=== PATIENT | male | born 1965 | race Caucasian/White ===

== ENCOUNTER 2020-07-28 08:55 | Inpatient (IN) | payer BC ==
[~2020-07-28] VITALS: Ht 182.9 cm; Wt 87.3 kg
[2020-07-28 09:34] LABS: BASO # 0.1 x10^3/uL (0.0-0.2); BASO % 1 % (0-3); EOS # 0.1 x10^3/uL (0.0-0.7); EOS % 3 % (0-3); HEMATOCRIT 42.9 % (39.0-53.0); HEMOGLOBIN 14.6 g/dL (13.0-17.5); LYMPH # 0.9 x10^3/uL (1.0-4.8); LYMPH % 15 % (24-48); MEAN CORPUSCULAR HEMOGLOBIN 32 pg (25-35); MEAN CORPUSCULAR HGB CONC 34 g/dL (31-37); MEAN CORPUSCULAR VOLUME 95 fL (79-100); MONO # 0.4 x10^3/uL (0.0-1.1); MONO % 6 % (0-9); NEUT # 4.4 x10^3/uL (1.8-7.7); NEUT % 75 % (31-73); PLATELET COUNT 187 x10^3/uL (140-400); RED BLOOD COUNT 4.54 x10^6/uL (4.30-5.70); RED CELL DISTRIBUTION WIDTH 15.5 % (11.5-14.5); WHITE BLOOD COUNT 5.8 x10^3/uL (4.0-11.0)
[2020-07-28 09:42] LABS: CALCIUM 8.8 mg/dL (8.5-10.1); CREATININE 0.9 mg/dL (0.7-1.3); GFR 87.6; POTASSIUM 3.6 mmol/L (3.5-5.1)
[2020-07-28 09:48] LABS: ALBUMIN 3.5 g/dL (3.4-5.0); ALBUMIN/GLOBULIN RATIO 1.3 (1.0-1.7); TOTAL BILIRUBIN 0.4 mg/dL (0.2-1.0); TOTAL PROTEIN 6.3 g/dL (6.4-8.2)
--- NOTE | 2020-07-28 10:52 | RAD ---
EXAM: CT Head without IV contrast INDICATION: Reason: confusion, syncope / Spl. Instructions: / History: TECHNIQUE: Multi-detector row CT images were obtained of the head without the use of IV contrast. All CT scans performed at this facility utilize dose optimization techniques as appropriate to the exam, including the following: Automated exposure control and adjustment of the mA and/or KV according to patient size (this includes techniques or standardized protocols for targeted exams where dose is indication/reason for exam). COMPARISON: None currently available. FINDINGS: BRAIN PARENCHYMA: No evidence of acute intraparenchymal hemorrhage or infarct. No abnormal parenchymal density or mass. Is mild generalized parenchymal volume loss with prominence of the sulci VENTRICLES & EXTRA-AXIAL SPACES: Ventricles are within normal limits. Basilar cisterns are patent. Enlargement of the CSF spaces in the posterior fossa is present, compatible with a megacisterna magna. ORBITS: Orbital contents are unremarkable. SINUSES: Visualized paranasal sinuses and mastoid air cells are clear. OSSEOUS & SOFT TISSUES: Calvarium and skull base are intact. 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 No acute intracranial process otherwise shown on noncontrast head CT. Electronically signed by: Julian Lofton MD (07/28/2020 10:50 AM) [id number]
[2020-07-28 11:30] LABS: BILIRUBIN,URINE NEGATIVE (NEG); COLOR,URINE YELLOW; NITRITE,URINE NEGATIVE (NEG); PH,URINE 6.5 (<5.0-8.0); PROTEIN,URINE 30 mg/dL (NEG-TRACE)
[2020-07-28 11:37] LABS: BARBITURATES NEG (NEG); BENZODIAZEPINES NEG (NEG); CANNABINOIDS NEG (NEG); COCAINE NEG (NEG); METHADONE NEG (NEG); OPIATES NEG (NEG); PHENCYCLIDINE NEG (NEG)
[2020-07-28 11:39] LABS: AMPHETAMINE/METHAMPHETAMINE NEG (NEG)
[2020-07-28 11:57] LABS: CLARITY,URINE CLEAR
[2020-07-28 12:01] LABS: BACTERIA,URINE FEW /HPF (0-FEW)
--- NOTE | 2020-07-28 12:29 | ED.ADGEN ---
Past Medical History Past Medical History: Anxiety, Other Additional Past Medical Histor: SVT,PANIC ATTACKS,NEUROPATHY Past Surgical History: Cholecystectomy, Other Additional Past Surgical Histo: R LEG ORIF Smoking Status: Former Smoker Alcohol Use: Occasionally General Adult EDM: Chief Complaint: SYNCOPE HPI: HPI: Patient is a 54-year-old male who presents to the emergency room after having a syncopal episode at work. Upon initial evaluation patient does not remember wh at happened and does not remember where he was prior to this occurring. He does state he works at [employer] which is where he came from. He does not remember getting out of bed this morning. According to EMS he was working at [employer] and was seen on the camera swaying and then passing out hitting his head. He is having headache and dizziness. Review of Systems: Review of Systems: Complete ROS is negative unless otherwise documented in HPI Allergies: Allergies: Allergies Coded Allergies Type Severity Reaction Last Updated Verified clarithromycin Allergy Unknown UNKNOWN 07/28/20 Yes Physical Exam: PE: General: Awake, alert, NAD. Well Nourished, well hydrated. Cooperative HEENT: Atraumatic, EOMI, PERRL, airway patent, moist oral mucosa Neck: Supple, trachea midline Respiratory: CTA bilaterally, normal effort, no wheezing/crackles CV: RRR, no murmur, cap refill <2 GI: Soft, nondistended, nontender, no masses MSK: No obvious deformities Skin: Warm, dry, intact Neuro: A&O x2, confused, speech NL, sensory and motor grossly intact, no focal deficits Psych: Normal affect, normal mood, not suicidal or homicidal Current Patient Data: Labs: Laboratory Tests Test 07/28/20 09:09 07/28/20 09:15 07/28/20 11:15 Glucose (Fingerstick) 91 mg/dL (70-99) White Blood Count 5.8 x10^3/uL (4.0-11.0) Red Blood Count 4.54 x10^6/uL (4.30-5.70) Hemoglobin 14.6 g/dL (13.0-17.5) Hematocrit 42.9 % (39.0-53.0) Mean Corpuscular Volume 95 fL (79-100) Mean Corpuscular Hemoglobin 32 pg (25-35) Mean Corpuscular Hemoglobin Concent 34 g/dL (31-37) Red Cell Distribution Width 15.5 % (11.5-14.5) H Platelet Count 187 x10^3/uL (140-400) Neutrophils (%) (Auto) 75 % (31-73) H Lymphocytes (%) (Auto) 15 % (24-48) L Monocytes (%) (Auto) 6 % (0-9) Eosinophils (%) (Auto) 3 % (0-3) Basophils (%) (Auto) 1 % (0-3) Neutrophils # (Auto) 4.4 x10^3/uL (1.8-7.7) Lymphocytes # (Auto) 0.9 x10^3/uL (1.0-4.8) L Monocytes # (Auto) 0.4 x10^3/uL (0.0-1.1) Eosinophils # (Auto) 0.1 x10^3/uL (0.0-0.7) Basophils # (Auto) 0.1 x10^3/uL (0.0-0.2) Sodium Level 139 mmol/L (136-145) Potassium Level 3.6 mmol/L (3.5-5.1) Chloride Level 106 mmol/L (98-107) Carbon Dioxide Level 21 mmol/L (21-32) Anion Gap 12 (6-14) Blood Urea Nitrogen 12 mg/dL (8-26) Creatinine 0.9 mg/dL (0.7-1.3) Estimated GFR (Cockcroft-Gault) 87.6 BUN/Creatinine Ratio 13 (6-20) Glucose Level 85 mg/dL (70-99) Calcium Level 8.8 mg/dL (8.5-10.1) Total Bilirubin 0.4 mg/dL (0.2-1.0) Aspartate Amino Transferase (AST) 19 U/L (15-37) Alanine Aminotransferase (ALT) 18 U/L (16-63) Alkaline Phosphatase 89 U/L (46-116) Troponin I Quantitative < 0.017 ng/mL (0.000-0.055) Total Protein 6.3 g/dL (6.4-8.2) L Albumin 3.5 g/dL (3.4-5.0) Albumin/Globulin Ratio 1.3 (1.0-1.7) Ethyl Alcohol Level < 10 mg/dL (0-10) Urine Collection Type Void Urine Color Yellow Urine Clarity Clear Urine pH 6.5 (<5.0-8.0) Urine Specific [place] 1.020 (1.000-1.030) Urine Protein 30 mg/dL (NEG-TRACE) Urine Glucose (UA) Negative mg/dL (NEG) Urine Ketones (Stick) Negative mg/dL (NEG) Urine Blood Negative (NEG) Urine Nitrite Negative (NEG) Urine Bilirubin Negative (NEG) Urine Urobilinogen Dipstick 1.0 mg/dL (0.2 mg/dL) Urine Leukocyte Esterase Negative (NEG) Urine RBC 1-2 /HPF (0-2) Urine WBC 5-10 /HPF (0-4) Urine Squamous Epithelial Cells Occ /LPF Urine Bacteria Few /HPF (0-FEW) Urine Mucus Mod /LPF Urine Opiates Screen Neg (NEG) Urine Methadone Screen Neg (NEG) Urine Barbiturates Neg (NEG) Urine Phencyclidine Screen Neg (NEG) Urine Amphetamine/Methamphetamine Neg (NEG) Urine Benzodiazepines Screen Neg (NEG) Urine Cocaine Screen Neg (NEG) Urine Cannabinoids Screen Neg (NEG) Urine Ethyl Alcohol Neg (NEG) Laboratory Tests 07/28/20 09:15 Laboratory Tests 07/28/20 09:15 Vital Signs: Vital Signs Date Time Temp Pulse Resp B/P (MAP) Pulse Ox O2 Delivery O2 Flow Rate FiO2 07/28/20 10:02 68 11 127/81 (96) 93 Room Air 07/28/20 08:55 98.6 98.6 EKG: EKG: [] Heart Score: Risk Factors: Risk Factors: DM, Current or recent (<one month) smoker, HTN, HLP, family history of CAD, obesity. Risk Scores: Score 0 - 3: 2.5% MACE over next 6 weeks - Discharge Home Score 4 - 6: 20.3% MACE over next 6 weeks - Admit for Clinical Observation Score 7 - 10: 72.7% MACE over next 6 weeks - Early Invasive Strategies Radiology/Procedures: Radiology/Procedures: [] Course & Med Decision Making: Course & Med Decision Making Pertinent Labs and Imaging studies reviewed. (See chart for details) Patient is a 54-year-old male who presents to the emergency room complaining of syncope. Upon arrival patient is confused and does not remember the morning. EKG does not show recurrent arrhythmia though patient is currently asymptomatic. CT head was done which does not show an intracranial bleed. Given patient's symptoms and initial presentation I am concerned and recommend admission at this time. Patient did improve while in the emergency room. He will be admitted to the hospitalist who is accepted admission. Pedro Disclaimer: Pedro Disclaimer: This electronic medical record was generated, in whole or in part, using a voice recognition dictation system. Departure Departure Impression: Primary Impression: Syncope Additional Impression: Closed head injury Disposition: 09 ADMITTED INPT THIS HOSP Condition: STABLE Referrals: NO PCP (PCP) Problem Qualifiers ANALILIA VALDERRAMA MD Jul 28, 2020 12:29
[2020-07-28] MEDS ORDERED: guaiFENesin ORAL 200 MG/10 ML LIQUID. PO PRN (12:30)
[2020-07-28] MEDS ORDERED: ALBUTEROL SULFATE 2.5 MG/3 ML NEBU. NEB PRN (12:30)
[2020-07-28] MEDS ORDERED: DOCUSATE SODIUM 100 MG CAPSULE. PO PRN (12:30)
[2020-07-28] MEDS ORDERED: ONDANSETRON PF 4 MG/2 ML VIAL. IV PRN (12:30)
[2020-07-28] MEDS ORDERED: IV NORMAL SALINE 1000ML BAG 1,000 ML IV SCH (12:30)
[2020-07-28] MEDS ORDERED: diphenhydrAMINE 50 MG/ML VIAL IVP PRN (12:30)
[2020-07-28] MEDS ORDERED: LORazepam 0.5 MG TABLET PO ONE (12:30)
[2020-07-28] MEDS: ENOXAPARIN 40 MG/0.4 ML SYRINGE. SQ SCH (12:46)
[2020-07-28] MEDS ORDERED: METHOCARBAMOL 750 MG TABLET PEG PRN (14:00)
--- NOTE | 2020-07-28 14:00 | NUR ---
Patient arrived to room 208 via bed from ER at around 1400. Patient A&OX4. VSS. Complains of headache & neck pain. Neck pain is chronic. Patient states he is recently & is currently living at [facility] half-way & working at [employer] trying to save up money for an apartment. The patient, RADHA BIGGS, 54 y/o, M admitted by NAHOMY JONES MD, was given written information regarding hospital policies, unit procedures and contact persons. Valuables were checked and noted. Will continue to monitor.
[2020-07-28 14:12] VITALS: BP 139/94
--- NOTE | 2020-07-28 14:15 | PDOC1 ---
History and Physical Date of Admission Date of Admission 07/28/2020 Identification/Chief Complaint Chief Complaint Lost consciousness Source Source: Chart review, Patient History of Present Illness History of Present Illness Patient is a 54-year-old gentleman with no significant past medical history except for SVT who he has been diagnosed for a long time ever since his teenage years. The patient has had several echocardiograms in the past and has been told that he has like an incomplete mitral valve prolapse. 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 He had breakfast this morning at his workplace and drank coffee no recent changes to his diet in no recent changes to his activity level either. The patient denies any herbal supplements nor nutritional supplements that have been started recently either. He was standing when he started feeling lightheaded and having the sensation of the room spinning, the patient denies any pulsatory auditory or visual aura type of symptoms, he does not remember falling to the ground he woke up when his coworkers were trying to wake him up from his stupor. The patient as per report from emergency department physician and EMS apparently had a brief period of "confusion". The patient did not present seizure-like activity there was no loss of sphincters and there is no tongue trauma either. The patient was brought to the emergency department where his work-up has been unrevealing at the present time, reassurance has been provided to the patient we have been asked to admit the patient for further evaluation and treatment. The patient denies any headache no blurred vision no recent infections no fever or chills no neck stiffness no trouble swallowing no neurological deficits have been reported. The patient denies any chest pain palpitations no shortness of breath no abdominal pain nausea vomiting or diarrhea has been reported. Patient denies any peripheral swelling. Plan of care has been explained detail and all of his concerns were addressed to the best of my abilities Past Medical History Past Medical History Mitral valve prolapse SVT Past Surgical History Past Surgical History: No pertinent history Family History Family History: No Significant Social History Smoke: No ALCOHOL: none Drugs: None Current Problem List Problem List Problems Medical Problems: (1) Closed head injury Status: Acute (2) Syncope Status: Acute Current Medications Current Medications Current Medications Medications (Trade) Dose Ordered Sig/Gail Start Time Stop Time Status Last Admin Dose Admin Acetaminophen (Tylenol) 650 mg PRN Q4HRS PRN 07/28/20 12:30 Albuterol Sulfate (Ventolin Neb Soln) 2.5 mg PRN Q4HRS PRN 07/28/20 12:30 Diphenhydramine HCl (Benadryl) 25 mg PRN Q4HRS PRN 07/28/20 12:30 Docusate Sodium (Colace) 100 mg PRN BID PRN 07/28/20 12:30 Enoxaparin Sodium (Lovenox 40mg Syringe) 40 mg Q24H 07/28/20 13:00 07/28/20 12:46 40 MG Guaifenesin (Robitussin) 200 mg PRN Q4HRS PRN 07/28/20 12:30 Lorazepam (Ativan) 0.5 mg 1X ONCE 07/28/20 12:30 07/28/20 12:34 DC 07/28/20 12:46 0.5 MG Meloxicam (Mobic) 7.5 mg BID PRN 07/28/20 14:00 Methocarbamol (Robaxin) 1,500 mg Q8H PRN 07/28/20 14:00 Ondansetron HCl (Zofran) 4 mg PRN Q4HRS PRN 07/28/20 12:30 Sodium Chloride 1,000 ml @ 100 mls/hr Q10H 07/28/20 12:30 07/28/20 22:29 07/28/20 12:46 100 MLS/HR Zolpidem Tartrate (Ambien) 5 mg PRN QHS PRN 07/28/20 12:30 Allergies Allergies Allergies Coded Allergies Type Severity Reaction Last Updated Verified clarithromycin Allergy Unknown UNKNOWN 07/28/20 Yes ROS Review of System CONSTITUTIONAL: No fever or chills EYES: No recent changes SKIN: No rash or itching CARDIOVASCULAR: No chest pain, syncope, palpitations, or edema RESPIRATORY: No SOB or cough GASTROINTESTINAL: No nausea, vomiting or abdominal pain NEUROLOGICAL: No headaches or weakness ENDOCRINE: No cold or heat intolerance GENITOURINARY: No urgency or frequency of urination MUSCULOSKELETAL: No back pain or joint pain LYMPHATICS: No enlarged lymph nodes PSYCHIATRIC: No anxiety or depression Physical Exam Physical Exam GEN.: No apparent distress. Alert and oriented. HEENT: Head is normocephalic, atraumatic NECK: Supple. LUNGS: Clear to auscultation. HEART: RRR, S1, S2 present. Peripheral pulses intact ABDOMEN: Soft, nontender. Positive bowel sounds. EXTREMITIES: Without any cyanosis. NEUROLOGIC: Normal speech, normal tone PSYCHIATRIC: Normal affect, normal mood. SKIN: No ulcerations Vitals Vitals Vital Signs Date Time Temp Pulse Resp B/P (MAP) Pulse Ox O2 Delivery O2 Flow Rate FiO2 07/28/20 13:42 86 20 140/83 (102) 98 Room Air 07/28/20 08:55 98.6 98.6 Labs Labs Laboratory Tests Test 07/28/20 09:09 07/28/20 09:15 07/28/20 11:15 Glucose (Fingerstick) 91 mg/dL (70-99) White Blood Count 5.8 x10^3/uL (4.0-11.0) Red Blood Count 4.54 x10^6/uL (4.30-5.70) Hemoglobin 14.6 g/dL (13.0-17.5) Hematocrit 42.9 % (39.0-53.0) Mean Corpuscular Volume 95 fL (79-100) Mean Corpuscular Hemoglobin 32 pg (25-35) Mean Corpuscular Hemoglobin Concent 34 g/dL (31-37) Red Cell Distribution Width 15.5 % (11.5-14.5) Platelet Count 187 x10^3/uL (140-400) Neutrophils (%) (Auto) 75 % (31-73) Lymphocytes (%) (Auto) 15 % (24-48) Monocytes (%) (Auto) 6 % (0-9) Eosinophils (%) (Auto) 3 % (0-3) Basophils (%) (Auto) 1 % (0-3) Neutrophils # (Auto) 4.4 x10^3/uL (1.8-7.7) Lymphocytes # (Auto) 0.9 x10^3/uL (1.0-4.8) Monocytes # (Auto) 0.4 x10^3/uL (0.0-1.1) Eosinophils # (Auto) 0.1 x10^3/uL (0.0-0.7) Basophils # (Auto) 0.1 x10^3/uL (0.0-0.2) Sodium Level 139 mmol/L (136-145) Potassium Level 3.6 mmol/L (3.5-5.1) Chloride Level 106 mmol/L (98-107) Carbon Dioxide Level 21 mmol/L (21-32) Anion Gap 12 (6-14) Blood Urea Nitrogen 12 mg/dL (8-26) Creatinine 0.9 mg/dL (0.7-1.3) Estimated GFR (Cockcroft-Gault) 87.6 BUN/Creatinine Ratio 13 (6-20) Glucose Level 85 mg/dL (70-99) Calcium Level 8.8 mg/dL (8.5-10.1) Total Bilirubin 0.4 mg/dL (0.2-1.0) Aspartate Amino Transf (AST/SGOT) 19 U/L (15-37) Alanine Aminotransferase (ALT/SGPT) 18 U/L (16-63) Alkaline Phosphatase 89 U/L (46-116) Troponin I Quantitative < 0.017 ng/mL (0.000-0.055) Total Protein 6.3 g/dL (6.4-8.2) Albumin 3.5 g/dL (3.4-5.0) Albumin/Globulin Ratio 1.3 (1.0-1.7) Ethyl Alcohol Level < 10 mg/dL (0-10) Urine Collection Type Void Urine Color Yellow Urine Clarity Clear Urine pH 6.5 (<5.0-8.0) Urine Specific [place] 1.020 (1.000-1.030) Urine Protein 30 mg/dL (NEG-TRACE) Urine Glucose (UA) Negative mg/dL (NEG) Urine Ketones (Stick) Negative mg/dL (NEG) Urine Blood Negative (NEG) Urine Nitrite Negative (NEG) Urine Bilirubin Negative (NEG) Urine Urobilinogen Dipstick 1.0 mg/dL (0.2 mg/dL) Urine Leukocyte Esterase Negative (NEG) Urine RBC 1-2 /HPF (0-2) Urine WBC 5-10 /HPF (0-4) Urine Squamous Epithelial Cells Occ /LPF Urine Bacteria Few /HPF (0-FEW) Urine Mucus Mod /LPF Urine Opiates Screen Neg (NEG) Urine Methadone Screen Neg (NEG) Urine Barbiturates Neg (NEG) Urine Phencyclidine Screen Neg (NEG) Urine Amphetamine/Methamphetamine Neg (NEG) Urine Benzodiazepines Screen Neg (NEG) Urine Cocaine Screen Neg (NEG) Urine Cannabinoids Screen Neg (NEG) Urine Ethyl Alcohol Neg (NEG) Laboratory Tests Test 07/28/20 09:09 07/28/20 09:15 07/28/20 11:15 Glucose (Fingerstick) 91 mg/dL (70-99) White Blood Count 5.8 x10^3/uL (4.0-11.0) Red Blood Count 4.54 x10^6/uL (4.30-5.70) Hemoglobin 14.6 g/dL (13.0-17.5) Hematocrit 42.9 % (39.0-53.0) Mean Corpuscular Volume 95 fL (79-100) Mean Corpuscular Hemoglobin 32 pg (25-35) Mean Corpuscular Hemoglobin Concent 34 g/dL (31-37) Red Cell Distribution Width 15.5 % (11.5-14.5) Platelet Count 187 x10^3/uL (140-400) Neutrophils (%) (Auto) 75 % (31-73) Lymphocytes (%) (Auto) 15 % (24-48) Monocytes (%) (Auto) 6 % (0-9) Eosinophils (%) (Auto) 3 % (0-3) Basophils (%) (Auto) 1 % (0-3) Neutrophils # (Auto) 4.4 x10^3/uL (1.8-7.7) Lymphocytes # (Auto) 0.9 x10^3/uL (1.0-4.8) Monocytes # (Auto) 0.4 x10^3/uL (0.0-1.1) Eosinophils # (Auto) 0.1 x10^3/uL (0.0-0.7) Basophils # (Auto) 0.1 x10^3/uL (0.0-0.2) Sodium Level 139 mmol/L (136-145) Potassium Level 3.6 mmol/L (3.5-5.1) Chloride Level 106 mmol/L (98-107) Carbon Dioxide Level 21 mmol/L (21-32) Anion Gap 12 (6-14) Blood Urea Nitrogen 12 mg/dL (8-26) Creatinine 0.9 mg/dL (0.7-1.3) Estimated GFR (Cockcroft-Gault) 87.6 BUN/Creatinine Ratio 13 (6-20) Glucose Level 85 mg/dL (70-99) Calcium Level 8.8 mg/dL (8.5-10.1) Total Bilirubin 0.4 mg/dL (0.2-1.0) Aspartate Amino Transf (AST/SGOT) 19 U/L (15-37) Alanine Aminotransferase (ALT/SGPT) 18 U/L (16-63) Alkaline Phosphatase 89 U/L (46-116) Troponin I Quantitative < 0.017 ng/mL (0.000-0.055) Total Protein 6.3 g/dL (6.4-8.2) Albumin 3.5 g/dL (3.4-5.0) Albumin/Globulin Ratio 1.3 (1.0-1.7) Ethyl Alcohol Level < 10 mg/dL (0-10) Urine Collection Type Void Urine Color Yellow Urine Clarity Clear Urine pH 6.5 (<5.0-8.0) Urine Specific [place] 1.020 (1.000-1.030) Urine Protein 30 mg/dL (NEG-TRACE) Urine Glucose (UA) Negative mg/dL (NEG) Urine Ketones (Stick) Negative mg/dL (NEG) Urine Blood Negative (NEG) Urine Nitrite Negative (NEG) Urine Bilirubin Negative (NEG) Urine Urobilinogen Dipstick 1.0 mg/dL (0.2 mg/dL) Urine Leukocyte Esterase Negative (NEG) Urine RBC 1-2 /HPF (0-2) Urine WBC 5-10 /HPF (0-4) Urine Squamous Epithelial Cells Occ /LPF Urine Bacteria Few /HPF (0-FEW) Urine Mucus Mod /LPF Urine Opiates Screen Neg (NEG) Urine Methadone Screen Neg (NEG) Urine Barbiturates Neg (NEG) Urine Phencyclidine Screen Neg (NEG) Urine Amphetamine/Methamphetamine Neg (NEG) Urine Benzodiazepines Screen Neg (NEG) Urine Cocaine Screen Neg (NEG) Urine Cannabinoids Screen Neg (NEG) Urine Ethyl Alcohol Neg (NEG) VTE Prophylaxis Ordered VTE Prophylaxis Devices: No VTE Pharmacological Prophylaxi: Yes Assessment/Plan Assessment/Plan Syncope differential is quite broad and includes cardiac etiology unlikely central etiology given his benign neurological examination no electrolyte disturbance that could explain it either. 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 otherwise no acute intracranial process History of SVT History of mitral valve prolapse Muscle spasms Plan Admit patient to the telemetry floor We will monitor troponins every 6 hours x2 We will order an echocardiogram We will order carotid ultrasounds Reassess neurological status in the a.m. Resume home medications if available for review DVT prophylaxis with Lovenox Further recommendations will be based on the clinical course, if negative work- up and orthostatic hypotension is not present most likely patient will be discharged in the a.m. Justifications for Admission Syncope Indications Altered Mental Status?: Yes Other Justification NAHOMY JONES MD Jul 28, 2020 14:15
[2020-07-28] MEDS ORDERED: LORA-434 PO (15:01)
[2020-07-28] MEDS ORDERED: CLONAZEPAM1 MG PO (15:01)
[2020-07-28] MEDS ORDERED: BUSP10TA PO (15:01)
[2020-07-28] MEDS ORDERED: OMEP20CA16 PO (15:01)
[2020-07-28] MEDS ORDERED: ATEN50TA PO (15:01)
[2020-07-28] MEDS: ACETAMINOPHEN 325 MG TABLET. PO PRN ×2 (15:05→22:48)
[2020-07-28] MEDS ORDERED: NORT10CA PO (16:19)
[2020-07-28] MEDS ORDERED: OMEP20TA8 PO (16:19)
[2020-07-28] MEDS ORDERED: CHOL500021 PO (16:21)
--- NOTE | 2020-07-28 16:21 | RAD ---
PQRS Compliance Statement - Stenosis calculations for CT, MR and conventional angiography are based upon measurement of the distal ICA diameter in accordance with the NASCET methodology. Stenosis calculations for carotid ultrasound studies are derived from validated velocity criteria which are known to correlate with the NASCET methodology. Duplex ultrasound carotid arteries. HISTORY: Syncope Real-time imaging, color-flow imaging and Doppler were utilized to evaluate the carotid arteries. There is mild plaque without stenosis at the right carotid bifurcation. Peak velocity in the right internal carotid artery was 53 cm/s with a systolic velocity ratio of 0.54. End diastolic velocity was 19 cm/s. There is antegrade flow in the right vertebral. There is minimal plaque at the carotid bifurcation and internal carotid artery on the right side. Peak velocity in the right internal carotid artery was 64 cm/s with an end-diastolic velocity of 12 cm/s and a systolic velocity ratio of the 0.52. There is antegrade flow in the left vertebral. IMPRESSION: 1. Minimal plaque the carotid bifurcations without significant stenosis. Electronically signed by: Van Serna MD (07/28/2020 4:18 PM) [facility]
[2020-07-28 16:40] VITALS: BP 135/83
[2020-07-28 16:45] VITALS: BP 158/95
[2020-07-28 16:50] VITALS: BP 154/96
[2020-07-28] MEDS: LORazepam 0.5 MG TABLET PO PRN ×2 (17:15→21:10)
[2020-07-28] MEDS ORDERED: FLU VACC QS 2020-21(6MOS+)/PF 0.5 ML SYRINGE. VAX IM ONE (18:00)
[2020-07-28] MEDS ORDERED: PANTOPRAZOLE 40 MG TABLET.DR. PO PRN (18:45)
[2020-07-28 19:50] VITALS: BP 151/70
[2020-07-28] MEDS: clonazePAM 0.5 MG TABLET PO SCH (21:00)
[2020-07-28] MEDS: busPIRone 10 MG TABLET. PO SCH (21:10)
[2020-07-28] MEDS: ATENOLOL 50 MG TABLET. PO SCH (21:11)
[2020-07-28 22:35] VITALS: BP 145/84
[2020-07-28] MEDS: ZOLPIDEM 5 MG TABLET. PO PRN (22:48)
[2020-07-29 03:00] VITALS: BP 138/78
[2020-07-29 07:00] VITALS: BP 139/80
[2020-07-29] MEDS: clonazePAM 0.5 MG TABLET PO SCH ×2 (08:48→20:44)
[2020-07-29] MEDS: CHOLECALCIFEROL (VITAMIN D3) 1,000 UNIT TABLET PO SCH (08:48)
[2020-07-29] MEDS: busPIRone 10 MG TABLET. PO SCH ×2 (08:49→20:43)
[2020-07-29] MEDS: MELOXICAM 7.5 MG TABLET PO PRN (08:51)
[2020-07-29] MEDS: NICOTINE 14MG PATCH. TD PRN (08:51)
[2020-07-29] MEDS: LORazepam 0.5 MG TABLET PO PRN ×3 (09:25→19:44)
[2020-07-29 11:14] VITALS: BP 125/76
[2020-07-29] MEDS: ENOXAPARIN 40 MG/0.4 ML SYRINGE. SQ SCH (13:00)
--- NOTE | 2020-07-29 13:18 | CARD ---
MR#: [id number] Date of Study: 07/29/2020 Ordering Physician: NAHOMY JONES, Referring Physician: NAHOMY JONES, Tech: Elo Sarah APPROVED REPORT EXAM: Two-dimensional and M-mode echocardiogram with Doppler and color Doppler. Other Information Quality : AverageHR: 67bpm INDICATION Syncope 2D DIMENSIONS Left Atrium(2D)4.0 (1.6-4.0cm)IVSd1.2 (0.7-1.1cm) Aortic Root(2D)3.5 (2.0-3.7cm)LVDd5.6 (3.9-5.9cm) LVOT Diameter2.2 (1.8-2.4cm)PWd1.2 (0.7-1.1cm) LVDs3.5 (2.5-4.0cm)FS (%) 37.6 % SV101.5 mlLVEF(%)67.0 (>50%) Aortic Valve AoV Peak Charan.100.8cm/sAoV VTI20.6cm AO Peak GR.4.1mmHgLVOT VTI 15.84cm AO Mean GR.2mmHg Mitral Valve MV E Saxxscjm22.0cm/sMV DECEL [id number] MV A Npqakppm88.3cm/sE/A Ratio1.5 TDI Lateral E' P. V9.78cm/sMedial E' P. V9.78cm/s E/Lateral E'7.6E/Medial E'7.6 Tricuspid Valve TR P. Trdmtacv305ph/sRAP WSZOVVCQ1zoXj TR Peak Gr.75jgTkTWYX80haOy Pulmonary Vein S1 Ejbnilzy28.5cm/sS2 Zoypdgwg53.49cm/s D2 Gbmvgqfc09.5cm/s LEFT VENTRICLE The left ventricle is normal size. There is mild concentric left ventricular hypertrophy. The left ve ntricular systolic function is normal and the ejection fraction is within normal range. The Ejection Fraction is 55%. There is normal LV segmental wall motion. Transmitral Doppler flow pattern is Grade II-pseudonormal filling dynamics. RIGHT VENTRICLE The right ventricle is normal size. There is normal right ventricular wall thickness. The right ventr icular systolic function is normal. ATRIA The left atrium size is normal. The right atrium size is normal. The interatrial septum is intact wit h no evidence for an atrial septal defect or patent foramen ovale as noted on 2-D or Doppler imaging. AORTIC VALVE The aortic valve is thickened but opens well. Doppler and Color Flow revealed no significant aortic r egurgitation. There is no significant aortic valvular stenosis. MITRAL VALVE The mitral valve is normal in structure and function. There is no evidence of mitral valve prolapse. There is no mitral valve stenosis. Doppler and Color Flow revealed no mitral valve regurgitation note d. TRICUSPID VALVE The tricuspid valve is normal in structure and function. Doppler and Color Flow revealed trace tricus pid regurgitation with an estimated PAP of 29 mmHg. There is no tricuspid valve stenosis. PULMONIC VALVE The pulmonic valve is not well visualized. Doppler and Color Flow revealed trace to mild pulmonic inocencio vular regurgitation. There is no pulmonic valvular stenosis. GREAT VESSELS The aortic root is normal in size. The IVC was not well visualized. PERICARDIAL EFFUSION There is no evidence of significant pericardial effusion. Critical Notification Critical Value: No <Conclusion> The left ventricular systolic function is normal and the ejection fraction is within normal range. Th e Ejection Fraction is 55%. There is normal LV segmental wall motion. Signed by : Giovanni Mondragon, Electronically Approved : 07/29/2020 13:18:21
[2020-07-29] MEDS: DICLOFENAC SODIUM 1% TOPICAL GEL 100GM TUBE. TP SCH ×2 (13:45→20:50)
[2020-07-29] MEDS: CYCLOBENZAPRINE 10 MG TABLET. PO PRN (13:45)
[2020-07-29 15:00] VITALS: BP 141/87
[2020-07-29 19:43] VITALS: BP 146/94
[2020-07-29] MEDS: ZOLPIDEM 5 MG TABLET. PO PRN (20:43)
[2020-07-29] MEDS: ATENOLOL 50 MG TABLET. PO SCH (20:43)
[2020-07-29 22:36] VITALS: BP 126/81
[2020-07-30 02:49] VITALS: BP 143/85
[2020-07-30] MEDS: MELOXICAM 7.5 MG TABLET PO PRN (04:44)
[2020-07-30] MEDS: LORazepam 0.5 MG TABLET PO PRN (04:47)
--- NOTE | 2020-07-30 06:13 | NUR ---
patient accidently pulled out IV. Obtained order to leave out IV per Dr. Moreno. WIll continue to monitor.
[2020-07-30 07:00] VITALS: BP 144/81
[2020-07-30] MEDS: CYCLOBENZAPRINE 10 MG TABLET. PO PRN (07:42)
[2020-07-30] MEDS: ACETAMINOPHEN 325 MG TABLET. PO PRN (07:45)
[2020-07-30] MEDS: busPIRone 10 MG TABLET. PO SCH (08:31)
[2020-07-30] MEDS: CHOLECALCIFEROL (VITAMIN D3) 1,000 UNIT TABLET PO SCH (08:31)
[2020-07-30] MEDS: clonazePAM 0.5 MG TABLET PO SCH (08:31)
[2020-07-30] MEDS: NICOTINE 14MG PATCH. TD PRN (08:32)
[2020-07-30] MEDS: DICLOFENAC SODIUM 1% TOPICAL GEL 100GM TUBE. TP SCH (08:32)
[2020-07-30] MEDS ORDERED: CYCL10TA2 PO (09:45)
[2020-07-30] MEDS ORDERED: MELO7.5T29 PO (09:45)
[2020-07-30 11:00] VITALS: BP 130/83
--- NOTE | 2020-07-30 11:07 | PDOC3 ---
Discharge Summary Visit Information Date of Admission: Jul 28, 2020 Date of Discharge: Jul 30, 2020 Admitting Diagnosis Comment: Syncope differential is quite broad and includes cardiac etiology unlikely central etiology given his benign neurological examination no electrolyte disturbance that could explain it either. 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 otherwise no acute intracranial process History of SVT History of mitral valve prolapse with no clinical significance Muscle spasms Brief Hospital Course Allergies Allergies Coded Allergies Type Severity Reaction Last Updated Verified clarithromycin Allergy Intermediate UNKNOWN 07/29/20 Yes Vital Signs Vital Signs Date Time Temp Pulse Resp B/P (MAP) Pulse Ox O2 Delivery O2 Flow Rate FiO2 07/30/20 07:30 Room Air 07/30/20 07:00 98.8 66 20 144/81 (102) 98 98.8 Lab Results Laboratory Tests Test 07/28/20 11:15 07/28/20 14:20 07/28/20 20:45 07/29/20 19:55 Urine Collection Type Void Urine Color Yellow Urine Clarity Clear Urine pH 6.5 (<5.0-8.0) Urine Specific [place] 1.020 (1.000-1.030) Urine Protein 30 mg/dL (NEG-TRACE) Urine Glucose (UA) Negative mg/dL (NEG) Urine Ketones (Stick) Negative mg/dL (NEG) Urine Blood Negative (NEG) Urine Nitrite Negative (NEG) Urine Bilirubin Negative (NEG) Urine Urobilinogen Dipstick 1.0 mg/dL (0.2 mg/dL) Urine Leukocyte Esterase Negative (NEG) Urine RBC 1-2 /HPF (0-2) Urine WBC 5-10 /HPF (0-4) Urine Squamous Epithelial Cells Occ /LPF Urine Bacteria Few /HPF (0-FEW) Urine Mucus Mod /LPF Urine Opiates Screen Neg (NEG) Urine Methadone Screen Neg (NEG) Urine Barbiturates Neg (NEG) Urine Phencyclidine Screen Neg (NEG) Urine Amphetamine/Methamphetamine Neg (NEG) Urine Benzodiazepines Screen Neg (NEG) Urine Cocaine Screen Neg (NEG) Urine Cannabinoids Screen Neg (NEG) Urine Ethyl Alcohol Neg (NEG) Troponin I Quantitative < 0.017 ng/mL (0.000-0.055) < 0.017 ng/mL (0.000-0.055) SARS-CoV-2 Antigen (Rapid) Negative (NEGATIVE) Laboratory Tests Test 07/29/20 19:55 SARS-CoV-2 Antigen (Rapid) Negative (NEGATIVE) Brief Hospital Course History of Present Illness Patient is a 54-year-old gentleman with no significant past medical history except for SVT who he has been diagnosed for a long time ever since his teenage years. The patient has had several echocardiograms in the past and has been told that he has like an incomplete mitral valve prolapse. 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 He had breakfast this morning at his workplace and drank coffee no recent changes to his diet in no recent changes to his activity level either. The patient denies any herbal supplements nor nutritional supplements that have been started recently either. He was standing when he started feeling lightheaded and having the sensation of the room spinning, the patient denies any pulsatory auditory or visual aura type of symptoms, he does not remember falling to the ground he woke up when his coworkers were trying to wake him up from his stupor. The patient as per report from emergency department physician and EMS apparently had a brief period of "confusion". The patient did not present seizure-like activity there was no loss of sphincters and there is no tongue trauma either. The patient was brought to the emergency department where his work-up has been unrevealing at the present time, reassurance has been provided to the patient we have been asked to admit the patient for further evaluation and treatment. The patient denies any headache no blurred vision no recent infections no fever or chills no neck stiffness no trouble swallowing no neurological deficits have been reported. The patient denies any chest pain palpitations no shortness of breath no abdominal pain nausea vomiting or diarrhea has been reported. Patient denies any peripheral swelling. Plan of care has been explained detail and all of his concerns were addressed to the best of my abilities 07/29/2020 Patient with no acute events reported overnight, the patient had a very uneventful evening no telemetry changes of concern. The patient was complaining of severe back pain due to the fall most likely. Fortunately enough he did not present any fractures and there is no evidence of bleeding bruising etc. Plan of care has been explained detail 07/30/2020 Patient had a benign hospital course and also a negative work-up with carotid ultrasounds normal with no flow-limiting lesions, echocardiogram also with normal ejection fraction no evidence of mitral valve prolapse or valvulopathy that could explain his symptoms. He was deemed appropriate for discharge and given his social problems we will be discharged patient later in the day [facility] so [facility]. All of his concerns were addressed to the best of my abilities and we will arrange for a follow-up appointment with Dr. Irlanda sierra moving forward so he can have a cardiac monitoring to rule out arrhythmias that are not frequent in nature. This was discussed at length with the patient as well Gen.: well-developed well-nourished in no apparent distress Head: Normal shape atraumatic Eyes: Pupils equal reactive to light and accommodation, normal conjunctivae and lids Ears: Normal shape Nose: Normal shape no trauma Mouth: No exudates of the back of throat no thrush no lesions Neck: Supple no JVD no carotid bruit or lymphadenopathy no thyromegaly Chest: Lungs clear to auscultation with good inspiratory effort no crackles rales or rhonchi Cardiovascular: S1-S2 regular rhythm no murmurs gallops or rubs Abdomen: Bowel sounds present soft nontender no hepatosplenomegaly appreciated sign Extremities: No clubbing no cyanosis no edema peripheral pulses palpated bilaterally Neurological: Alert awake oriented in person time place and situation, cranial nerves II through XII intact, no motor or sensory deficits appreciated Psych: Appropriate mood, cooperative Assessment Assessment [address] [place], [place] [id number] IMAGING REPORT Signed PATIENT: RADHA BIGGS ACCOUNT: [id number] : 1965 LOCATION: [facility] AGE: 54 SEX: M EXAM STATUS: ADM IN ORD. PHYSICIAN: NAHOMY JONES MD REASON: syncope PROCEDURE: DOPPLER CAROTID BILAT PQRS Compliance Statement - Stenosis calculations for CT, MR and conventional angiography are based upon measurement of the distal ICA diameter in accordance with the NASCET methodology. Stenosis calculations for carotid ultrasound studies are derived from validated velocity criteria which are known to correlate with the NASCET methodology. Duplex ultrasound carotid arteries. HISTORY: Syncope Real-time imaging, color-flow imaging and Doppler were utilized to evaluate the carotid arteries. There is mild plaque without stenosis at the right carotid bifurcation. Peak velocity in the right internal carotid artery was 53 cm/s with a systolic velocity ratio of 0.54. End diastolic velocity was 19 cm/s. There is antegrade flow in the right vertebral. There is minimal plaque at the carotid bifurcation and internal carotid artery on the right side. Peak velocity in the right internal carotid artery was 64 cm/s with an end-diastolic velocity of 12 cm/s and a systolic velocity ratio of the 0.52. There is antegrade flow in the left vertebral. IMPRESSION: 1. Minimal plaque the carotid bifurcations without significant stenosis. Discharge Information Condition at Discharge: Improved Follow Up: Weeks Disposition/Orders: D/C to Home Scheduled Atenolol (Atenolol) 50 Mg Tablet, 1 TAB PO HS for SVT, #30 Ref 5 (Reported) Entered as Reported by: JULIANNE DE LA PAZ on 07/28/201500 Last Action: Continued on 07/28/201841 by JULIANNE DE LA PAZ Buspirone Hcl (Buspirone Hcl) 10 Mg Tablet, 2 TAB PO BID for anxiety, #60 Ref 1 (Reported) Entered as Reported by: JULIANNE DE LA PAZ on 07/28/20 150 Last Action: Continued on 07/28/201841 by JULIANNE DE LA PAZ Cholecalciferol (Vitamin D3) (D3-50) 50,000 Unit Capsule, 1,000 CAP PO DAILY for supplement for 28 Days, #4 Ref 0 (Reported) Entered as Reported by: JULIANNE DE LA PAZ on 07/28/20 162 Last Action: Converted on 07/28/201841 by JULIANNE DE LA PAZ Clonazepam (Clonazepam) 1 Mg Tablet, 1 MG PO BID for FOR ANXIETY, (Reported) Entered as Reported by: JULIANNE DE LA PAZ on 07/28/20 150 Last Action: Converted on 07/28/201841 by JULIANNE DE LA PAZ Nortriptyline Hcl (Nortriptyline Hcl) 10 Mg Capsule, Unknown Dose PO QHS for nerve pain, #30 (Reported) Entered as Reported by: JULIANNE DE LA PAZ on 07/28/201618 Last Taken: UNKNOWN on Unknown Date & Time Last Action: New Order on 07/28/201618 by JULIANNE DE LA PAZ Scheduled PRN Cyclobenzaprine Hcl (Cyclobenzaprine Hcl) 10 Mg Tablet, 10 MG PO PRN Q6HRS PRN for MUSCLE SPASMS for 30 Days, #30 Prescribed by: NAHOMY JONES MD on 07/30/20 0945 Lorazepam (Ativan) 1 Mg Tablet, 1 MG PO PRN TID PRN for ANXIETY / AGITATION, (Reported) Entered as Reported by: JULIANNE DE LA PAZ on 07/28/20 150 Last Action: New Order on 07/28/201500 by JULIANNE DE LA PAZ Meloxicam (Meloxicam) 7.5 Mg Tablet, 7.5 MG PO BID PRN for pain for 30 Days, #60 Prescribed by: NAHOMY JONES MD on 07/30/20 0945 Omeprazole (Omeprazole) 20 Mg Tablet.dr, Unknown Dose PO PRN DAILY PRN for gerd, #90 Ref 1 (Reported) Entered as Reported by: JULIANNE DE LA PAZ on 07/28/201618 Last Action: Converted on 07/28/20 184 by JULIANNE DE LA PAZ Justicifation of Admission Dx: Justifications for Admission: Justification of Admission Dx: Yes CHF: Cardiac Arrhythmias NAHOMY JONES MD Jul 30, 2020 11:07
--- NOTE | 2020-07-30 11:08 | PDOC ---
PROGRESS NOTES Date of Service: DATE: 07/30/20 TIME: 11:07 Chief Complaint Chief Complaint Syncopal episode most likely vasovagal History of SVT Fall from own height with muscle spasms Intractable back pain Plan Pain management Change muscle relaxant to Flexeril Continue with Follow results of echocardiogram History of Present Illness History of Present Illness No acute events reported overnight, case discussed with nursing staff patient in no acute distress no complaints during my visit Vitals Vitals Vital Signs Date Time Temp Pulse Resp B/P (MAP) Pulse Ox O2 Delivery O2 Flow Rate FiO2 07/30/20 07:30 Room Air 07/30/20 07:00 98.8 66 20 144/81 (102) 98 98.8 Physical Exam Physical Exam Gen.: well-developed well-nourished in no apparent distress Head: Normal shape atraumatic Eyes: Pupils equal reactive to light and accommodation, normal conjunctivae and lids Ears: Normal shape Nose: Normal shape no trauma Mouth: No exudates of the back of throat no thrush no lesions Neck: Supple no JVD no carotid bruit or lymphadenopathy no thyromegaly Chest: Lungs clear to auscultation with good inspiratory effort no crackles rales or rhonchi Cardiovascular: S1-S2 regular rhythm no murmurs gallops or rubs Abdomen: Bowel sounds present soft nontender no hepatosplenomegaly appreciated sign Extremities: No clubbing no cyanosis no edema peripheral pulses palpated bilaterally Neurological: Alert awake oriented in person time place and situation, cranial nerves II through XII intact, no motor or sensory deficits appreciated Psych: Appropriate mood, cooperative Labs LABS Laboratory Tests Test 07/29/20 19:55 SARS-CoV-2 Antigen (Rapid) Negative (NEGATIVE) Assessment and Plan Assessmemt and Plan Problems Medical Problems: (1) Closed head injury Status: Acute (2) Syncope Status: Acute Comment Review of Relevant I have reviewed the following items albert (where applicable) has been applied. Labs Laboratory Tests Test 07/28/20 11:15 07/28/20 14:20 07/28/20 20:45 07/29/20 19:55 Urine Collection Type Void Urine Color Yellow Urine Clarity Clear Urine pH 6.5 (<5.0-8.0) Urine Specific [place] 1.020 (1.000-1.030) Urine Protein 30 mg/dL (NEG-TRACE) Urine Glucose (UA) Negative mg/dL (NEG) Urine Ketones (Stick) Negative mg/dL (NEG) Urine Blood Negative (NEG) Urine Nitrite Negative (NEG) Urine Bilirubin Negative (NEG) Urine Urobilinogen Dipstick 1.0 mg/dL (0.2 mg/dL) Urine Leukocyte Esterase Negative (NEG) Urine RBC 1-2 /HPF (0-2) Urine WBC 5-10 /HPF (0-4) Urine Squamous Epithelial Cells Occ /LPF Urine Bacteria Few /HPF (0-FEW) Urine Mucus Mod /LPF Urine Opiates Screen Neg (NEG) Urine Methadone Screen Neg (NEG) Urine Barbiturates Neg (NEG) Urine Phencyclidine Screen Neg (NEG) Urine Amphetamine/Methamphetamine Neg (NEG) Urine Benzodiazepines Screen Neg (NEG) Urine Cocaine Screen Neg (NEG) Urine Cannabinoids Screen Neg (NEG) Urine Ethyl Alcohol Neg (NEG) Troponin I Quantitative < 0.017 ng/mL (0.000-0.055) < 0.017 ng/mL (0.000-0.055) SARS-CoV-2 Antigen (Rapid) Negative (NEGATIVE) Laboratory Tests Test 07/29/20 19:55 SARS-CoV-2 Antigen (Rapid) Negative (NEGATIVE) Medications Current Medications Sodium Chloride 1,000 ml @ 100 mls/hr Q10H IV Last administered on 07/28/20at 12:46; Start 07/28/20 at 12:30; Stop 07/28/20 at 22:29; Status DC Ondansetron HCl (Zofran) 4 mg PRN Q4HRS PRN IV NAUSEA/VOMITING; Start 07/28/20 at 12:30 Zolpidem Tartrate (Ambien) 5 mg PRN QHS PRN PO INSOMNIA Last administered on 07/29/20at 20:43; Start 07/28/20 at 12:30 Acetaminophen (Tylenol) 650 mg PRN Q4HRS PRN PO TEMP OVER 100.4F OR MILD PAIN Last administered on 07/30/20at 07:45; Start 07/28/20 at 12:30 Diphenhydramine HCl (Benadryl) 25 mg PRN Q4HRS PRN IVP ITCHING; Start 07/28/20 at 12:30 Docusate Sodium (Colace) 100 mg PRN BID PRN PO HARD STOOLS; Start 07/28/20 at 12:30 Albuterol Sulfate (Ventolin Neb Soln) 2.5 mg PRN Q4HRS PRN NEB SHORTNESS OF BREATH; Start 07/28/20 at 12:30 Guaifenesin (Robitussin) 200 mg PRN Q4HRS PRN PO COUGH; Start 07/28/20 at 12:30 Lorazepam (Ativan) 0.5 mg PRN Q4HRS PRN PO ANXIETY / AGITATION Last administered on 07/30/20at 04:47; Start 07/28/20 at 12:30 Enoxaparin Sodium (Lovenox 40mg Syringe) 40 mg Q24H SQ Last administered on 07/28/20at 12:46; Start 07/28/20 at 13:00 Lorazepam (Ativan) 0.5 mg 1X ONCE PO Last administered on 07/28/20at 12:46; Start 07/28/20 at 12:30; Stop 07/28/20 at 12:34; Status DC Methocarbamol (Robaxin) 1,500 mg Q8H PRN PEG MUSCLE SPASMS Last administered on 07/28/20at 15:05; Start 07/28/20 at 14:00; Stop 07/29/20 at 13:21; Status DC Meloxicam (Mobic) 7.5 mg BID PRN PO pain Last administered on 07/30/20 04:44; Start 07/28/20 at 14:00 Influenza Virus Vaccine Quadrival (Fluzone Quad [id number] Syringe) 0.5 ml ONCE ONCE VAX IM Last administered on 07/28/20at 17:18; Start 07/28/20 at 18:00; Stop 07/28/20 at 18:01; Status DC Nicotine (Nicoderm Cq 14mg) 1 patch PRN DAILY PRN TD SMOKING CESSATION Last administered on 07/30/20 08:32; Start 07/28/20 at 18:45 Atenolol (Tenormin) 50 mg HS PO Last administered on 07/29/20at 20:43; Start 07/28/20 at 21:00 Buspirone HCl (Buspar) 20 mg BID PO Last administered on 07/30/20 08:31; Start 07/28/20 at 21:00 Vitamin D (Vitamin D3) 1,000 unit DAILY PO Last administered on 11/28/20at 08:31; Start 07/29/20 at 09:00 Clonazepam (KlonoPIN) 1 mg BID PO Last administered on 07/30/20at 08:31; Start 07/28/20 at 21:00 Pantoprazole Sodium (Protonix) 40 mg PRN DAILY PRN PO GI SYMPTOMS; Start 07/28/20 at 18:45 Cyclobenzaprine HCl (Flexeril) 10 mg PRN Q6HRS PRN PO MUSCLE SPASMS Last administered on 07/30/20at 07:42; Start 07/29/20 at 13:30 Diclofenac Sodium (Voltaren) 1 loida BID TP Last administered on 07/30/20at 08:32; Start 07/29/20 at 14:00 Active Scripts Active Meloxicam 7.5 Mg Tablet 7.5 Mg PO BID PRN 30 Days Cyclobenzaprine Hcl 10 Mg Tablet 10 Mg PO PRN Q6HRS PRN 30 Days Reported D3-50 (Cholecalciferol (Vitamin D3)) 50,000 Unit Capsule 1,000 Cap PO DAILY 28 Days Nortriptyline Hcl 10 Mg Capsule Unknown Dose PO QHS Omeprazole 20 Mg Tablet.dr Unknown Dose PO PRN DAILY PRN Clonazepam 1 Mg Tablet 1 Mg PO BID Ativan (Lorazepam) 1 Mg Tablet 1 Mg PO PRN TID PRN Buspirone Hcl 10 Mg Tablet 2 Tab PO BID Atenolol 50 Mg Tablet 1 Tab PO HS Vitals/I & O Vital Sign - Last 24 Hours 07/29/20 07/29/20 07/29/20 07/29/20 11:14 15:00 19:43 20:00 Temp 98.6 99.2 98.7 98.6 99.2 98.7 Pulse 65 68 66 Resp 20 20 19 B/P (MAP) 125/76 (92) 141/87 (105) 146/94 (111) Pulse Ox 97 97 97 O2 Delivery Room Air Room Air Room Air Room Air 07/29/20 07/29/20 07/30/20 07/30/20 20:43 22:36 02:49 07:00 Temp 98.7 98.5 98.8 98.7 98.5 98.8 Pulse 66 70 58 66 Resp 18 19 20 B/P (MAP) 146/94 126/81 (96) 143/85 (104) 144/81 (102) Pulse Ox 98 97 98 O2 Delivery Room Air Room Air Room Air 07/30/20 07:30 O2 Delivery Room Air Intake and Output 07/29/20 07/29/20 07/30/20 15:00 23:00 07:00 Intake Total 525 ml 1000 ml 100 ml Balance 525 ml 1000 ml 100 ml Justicifation of Admission Dx: Justifications for Admission: Justification of Admission Dx: Yes CHF: Cardiac Arrhythmias NAHOMY JONES MD Jul 30, 2020 11:08
[2020-07-30] MEDS: ENOXAPARIN 40 MG/0.4 ML SYRINGE. SQ SCH (13:00)
[2020-07-30 15:00] VITALS: BP 161/86
--- NOTE | 2020-07-30 15:58 | NUR ---
Pt alert and oriented throughout shift. Pt with some back pain early that was controlled with meloxicam and flexeril. Pt currently staying at [facility] [place]. I called them to get pharmacy [facility]. [facility] is [facility] [address] [place] [phone] I called in scripts for flexeril (30 no refills), mobic (60 no refills), and atenolol 50mg (30 with 2 refills). Pt taken out to cab in wheelchair by [employer]. All questions answered at time of discharge
--- NOTE | 2020-07-30 18:25 | NUR ---
prescriptions called to [facility] [address] [phone]
--- NOTE | 2020-08-01 09:45 | NUR ---
IP: Attempted to call COVID results. No answer. No means to leave a voicemail.
== END 2020-07-30 15:45 | disposition home or self-care (01) | DRG 68 ==
LOC: ER 08:55 → 2 NORTH 12:30
PROVIDERS: ADMIT Internal Medicine; ATTEND Internal Medicine
PROC: B348ZZZ Ultrasonography of Bilateral Internal Carotid Arteries (ICD-10-PCS; principal; 2020-07-28)
DX: I65.23 Occlusion and stenosis of bilateral carotid arteries (principal); I47.1 Supraventricular tachycardia; F41.9 Anxiety disorder, unspecified; G62.9 Polyneuropathy, unspecified; Z20.828 Contact with and (suspected) exposure to other viral communicable diseases; R55 Syncope and collapse; M62.838 Other muscle spasm; F41.0 Panic disorder [episodic paroxysmal anxiety]; Z87.891 Personal history of nicotine dependence; Z90.49 Acquired absence of other specified parts of digestive tract; Z88.8 Allergy status to other drugs, medicaments and biological substances
CPT/HCPCS: 36415; 70450; 80053; 80307; 81001; 82962; 84484; 85025; 87426; 90471; 90686; 93306; 93880; G0480; J1650; J7030; U0003; G0378